=== PATIENT | female | born 1995 | race African-American/Black ===

== ENCOUNTER 2017-10-22 06:02 | Emergency (ER) | payer OTHER ==
[~2017-10-22] VITALS: Ht 170.2 cm; Wt 90.7 kg
[2017-10-22 06:10] VITALS: BP 150/91
[2017-10-22] MEDS ORDERED: FLUORESCEIN 1MG EYE STRIP. ONE (06:13)
[2017-10-22] MEDS ORDERED: TETRACAINE 0.5% OPHTH SOLUTION 4ML BOTTLE. OD ONE (06:15)
[2017-10-22] MEDS ORDERED: NAPR-683 PO (06:28)
[2017-10-22] MEDS ORDERED: FLUORESCEIN 1MG EYE STRIP. OD ONE (06:30)
--- NOTE | 2017-10-22 06:32 | PHYS DOC ---
Past History Past Medical History: No Pertinent History Smoking: Non-smoker Adult General Chief Complaint Chief Complaint: contact lens stuck in the eye HPI HPI 22-year-old female patient states she fell asleep last while wearing cosmetic light brown color contact lens this morning she was able to remove the contact lenses but couldn't find the right contact lens and complaining of pain and foreign body sensation and photophobia and erythema. Patient states she was not able to remove the contact lens. Patient denies fever chills, headache, focal neuro deficit. Review of Systems Review of Systems Constitutional: Denies fever or chills [] Eyes: Denies change in visual acuity, reports redness, eye pain [] HENT: Denies nasal congestion or sore throat [] Respiratory: Denies cough or shortness of breath [] Cardiovascular: No additional information not addressed in HPI [] GI: Denies abdominal pain, nausea, vomiting, bloody stools or diarrhea [] : Denies dysuria or hematuria [] Musculoskeletal: Denies back pain or joint pain [] Integument: Denies rash or skin lesions [] Neurologic: Denies headache, focal weakness or sensory changes [] Endocrine: Denies polyuria or polydipsia [] All other systems were reviewed and found to be within normal limits, except as documented in this note. Current Medications Current Medications Current Medications Medications (Trade) Dose Ordered Sig/Sven Start Time Stop Time Status Last Admin Dose Admin Fluorescein Sodium (Ful-Magali 1mg) 1 strip STK-MED ONCE 10/22/17 06:13 10/22/17 06:14 DC Tetracaine HCl (Tetracaine) 1 drop 1X ONCE 10/22/17 06:15 10/22/17 06:16 DC Allergies Allergies Allergies Coded Allergies Type Severity Reaction Last Updated Verified Unable to Assess 10/22/17 No Physical Exam Physical Exam Constitutional: Well developed, well nourished, moderate distress, non-toxic appearance. [] HENT: Normocephalic, atraumatic Eyes: PERRLA, EOMI, right conjunctiva is erythema and tearing, no retained contact lenses in the eye, positive fluorescein uptake in the scleral area Neck: Normal range of motion, no tenderness, supple, no stridor. [] Cardiovascular:Heart rate regular rhythm, no murmur [] Lungs & Thorax: Bilateral breath sounds clear to auscultation [] Neurologic: Alert and oriented X 3, normal motor function, normal sensory function, no focal deficits noted. [] Psychologic: Affect normal, judgement normal, mood normal. [] EKG EKG [] Radiology/Procedures Radiology/Procedures [] Course & Med Decision Making Course & Med Decision Making Evaluation of patient in ER showed a young female patient with complaining of pain contact lens] on. Patient did not have 10 contact lens and had cardiovascular operation and treated with topical tetracaine and felt better. Plan to give prescription for Maxitrol and instruction to not use contact lenses for several days. Dragon Disclaimer Dragon Disclaimer This electronic medical record was generated, in whole or in part, using a voice recognition dictation system. Departure Departure: Impression: Primary Impression: Sensation of foreign body in eye Disposition: HOME, SELF-CARE (At 0624) Condition: IMPROVED Referrals: LORI SHELBY (PCP) Patient Instructions: Eye - Corneal Abrasion Scripts Jose Enrique/Polymyx B Sulf/Dexameth (MAXITROL EYE DROPS) 5 Ml Drops.susp 1 DROP OD QID for 5 Days, #5 ML Prov: QUITA OLIVEROS MD 10/22/17 Naproxen (NAPROSYN) 500 Mg Tablet 1 TAB PO BID, #14 TAB 1 Refill Prov: QUITA OLIVEROS MD 10/22/17 QUITA OLIVEROS MD Oct 22, 2017 06:32
[2017-10-22] MEDS ORDERED: NEO/5DRO OD (06:33)
== END 2017-10-22 06:37 | disposition home or self-care (01) ==
LOC: ER 06:02
DX: T15.91XA Foreign body on external eye, part unspecified, right eye, initial encounter (principal)
CPT/HCPCS: 99283